=== PATIENT | male | born 1985 | race Caucasian/White ===

== ENCOUNTER 2020-04-18 18:22 | Emergency (ER) | payer MEDICAID ==
[~2020-04-18] VITALS: Ht 177.8 cm; Wt 81.6 kg
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
[2020-04-18 18:35] VITALS: BP 132/72
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
--- NOTE | 2020-04-18 18:59 | NUR ---
HAND-OFF: Report given to Madiha ACEVEDO.
[2020-04-18] MEDS ORDERED: LIDODERM700 M1 TOPIC (19:07)
[2020-04-18] MEDS ORDERED: ROBAXIN-750750 MG PO (19:07)
[2020-04-18] MEDS ORDERED: IBUPROFEN600 M1 ORAL (19:07)
--- NOTE | 2020-04-18 19:19 | NUR ---
ER DISCHARGE NOTE: Patient is cleared to be discharged per ERMD, pt is aao x4, on room air, with stable vital signs. Size large sling applied to left arm. pt was given d/c and prescription instructions, pt was able to verbalize understanding, pt id band and iv site removed without complications. pt is able to ambulate with steady gait. pt took all belongings.
[2020-04-18 19:21] VITALS: BP 125/70
--- NOTE | 2020-04-19 15:43 | Diagnostic Imaging Report ---
Indications:Left elbow pain status post fall Technique: Three or 4 views of the left elbow Comparison: None Findings: No acute fracture. No dislocation. No definite joint effusion. Impression: Negative
== END 2020-04-18 19:23 | disposition home or self-care (01) ==
LOC: EMR 19:05
DX: S50.02XA Contusion of left elbow, initial encounter (principal); M62.830 Muscle spasm of back; G40.909 Epilepsy, unspecified, not intractable, without status epilepticus; W05.1XXA Fall from non-moving nonmotorized scooter, initial encounter; Y92.9 Unspecified place or not applicable
CPT/HCPCS: 73080; Z7502; 99283